=== PATIENT | female | born 1975 | race Caucasian/White ===

== ENCOUNTER → 2016-07-09 | Outpatient (CLI) | payer MEDICAID | LOC: FIMAGING 08:33 | PROVIDERS: ATTEND Midwife | DX: O09.522 Supervision of elderly multigravida, second trimester (principal); Z3A.20 20 weeks gestation of pregnancy ==

== ENCOUNTER → 2016-09-26 | Outpatient (CLI) | payer MEDICAID | LOC: FIMAGING 13:33 | PROVIDERS: ATTEND Midwife | DX: O09.523 Supervision of elderly multigravida, third trimester (principal); Z3A.33 33 weeks gestation of pregnancy ==

== ENCOUNTER 2016-10-05 18:30 | Observation (INO) | payer MEDICAID ==
--- NOTE | 2016-10-05 19:06 | SOAPPROG ---
SOAP Progress Note Assessment/Plan: Assessment: at 33w2d, here for r/o PPROM and PTL No e/o PPROM: neg pool/fern, neg amnisure, normal CAYLA No e/o PTL: cervix closed, fFN neg status reassuring Expect symptoms are MSK in nature Plan: Discharge home with precautions F/u as scheduled next week 10/05/16 20:32 Subjective: Patient is a 41 yo at 33w2d by LMP and 1st trim US, here with multiple complaints: 1) Trickle of milky fluid down her leg after showering yesterday. No leaking since then 2) Intermittent strong pelvic cramps 3) Intermittent back pain 4) Intermittent "cervical pressure" Her has been complicated by AMA, with normal anatomy US and NIPT. Up to date on care. Had a recent US to monitor growth which was appropriate. Prior 18 yrs ago at term, also h/o ectopic. Rh pos. Normal movement. No VB. Not feeling any tightening or contractions, just what she describes as menstrual cramps. Objective: 121/76 92 95% 36.4 Gen: Alert, awake, NAD Resp: unlabored CV: RRR Abd: gravid, soft, nontender Ext: no edema SSE: physiologic leukorrhea of . Cervix long/closed. Neg pool, including with valsalva fFN, amnisure, slide for fern, GBS collected Wet mount: Neg clue cells. Neg yeast. Neg fern Bedside US: Vertex presentation DVP 6.6 cm Post placenta FHR baseline 140, mod gina, + acc 15x15, no decels Contractions: none SVE (after neg amnisure): long/closed ICD10 Worksheet Patient Problems: Problems Problem Status Onset Abdominal pain affecting , antepartum Acute - ICD10 Problem Qualifiers (1) Abdominal pain affecting , antepartum
== END 2016-10-05 20:57 | disposition home or self-care (01) ==
LOC: FLD 18:30
PROVIDERS: ADMIT Obstetrics & Gynecology; ATTEND Obstetrics & Gynecology
DX: O99.89 Other specified diseases and conditions complicating pregnancy, childbirth and the puerperium (principal); R10.2 Pelvic and perineal pain; O09.513 Supervision of elderly primigravida, third trimester; Z3A.33 33 weeks gestation of pregnancy
CPT/HCPCS: 59025; 76815; G0378

== ENCOUNTER → 2016-10-22 | Outpatient (CLI) | payer MEDICAID | LOC: FIMAGING 12:38 | PROVIDERS: ATTEND Midwife | DX: O09.523 Supervision of elderly multigravida, third trimester (principal); Z3A.35 35 weeks gestation of pregnancy ==

== ENCOUNTER 2016-11-15 17:57 | Inpatient (IN) | payer MEDICAID ==
[2016-11-15] MEDS ORDERED: TERBUTALINE SULFATE 1 MG/ML VIAL IV PRN (19:53)
[2016-11-15] MEDS ORDERED: IBUPROFEN 600 MG TAB PO PRN (19:53)
[2016-11-15] MEDS ORDERED: OLIVE OIL 118 ML BTL MISC PRN (19:53)
[2016-11-15] MEDS ORDERED: LR 1,000 ML IV PRN (19:53)
[2016-11-15] MEDS ORDERED: OXYTOCIN/RINGERS LACTATE 1,000 ML IV PRN (19:53)
[2016-11-15] MEDS ORDERED: EPSOM SALT 454 GM TP PRN (19:53)
--- NOTE | 2016-11-15 20:13 | PDGENHP ---
History and Physical History and Physical: Patient is a 41 year old who presents for IOL of labor for PrEclampsia Patient refusing IV at this point Discussed use of yun balloon for IOL and no meds patient agrees. Denies headache no visual changes no epigastric pain. BP 127/79 Lung: CTA Heart:RRR Abd: nontender gravid Cervix: External os 2 cm internal os 1 cm Cephalic by ultrasound O+/Rubella Non Immune/GBS negative Normal PIH labs today Yun balloon placed Reactive NST All questions and concerns answered Discussed possible AROM after balloon out vs pitocin etc.
[2016-11-16] MEDS ORDERED: OLIVE OIL 118 ML BTL ONE (00:50)
[2016-11-16] MEDS ORDERED: LIDOCAINE 1% 300 MG/30 ML SDV ONE (00:50)
[2016-11-16] MEDS ORDERED: AMMONIA AROMATIC 1 EACH AMP IH ONE (00:50)
[2016-11-16] MEDS ORDERED: TERBUTALINE SULFATE 1 MG/ML VIAL ONE (00:50)
[2016-11-16] MEDS ORDERED: OXYTOCIN 10 UNIT/ML VIAL ONE (00:51)
[2016-11-16] MEDS ORDERED: MISOPROSTOL 200 MCG TAB ONE (00:51)
[2016-11-16 06:53] LABS: % IMMATURE GRANULYOCYTES 1.7 % (0.0-1.1); ABSOLUTE IMMATURE GRANULOCYTES 0.23 10^3/uL (0.00-0.10); ADD DIFF? NO; ADD MORPH? NO; ADD SCAN? NO; ATYPICAL LYMPHOCYTE FLAG 0 (0-99); FRAGMENT RBC FLAG 20 (0-99); HEMATOCRIT 34.9 % (38.0-47.0); HEMOGLOBIN 11.4 g/dL (12.6-16.3); LEFT SHIFT FLG 10 (0-99); LIPEMIA HEMOLYSIS FLAG 80 (0-99); MEAN CELL HEMOGLOBIN 27.4 pg (27.9-34.1); MEAN CELL HEMOGLOBIN CONCENTR. 32.7 g/dL (32.4-36.7); MEAN CELL VOLUME 83.9 fL (81.5-99.8); PLATELET CLUMPS FLAG 0 (0-99); PLATELET COUNT 194 10^3/uL (150-400); RED BLOOD CELL COUNT 4.16 10^6/uL (4.18-5.33); RED CELL DISTRIBUTION WIDTH 17.1 % (11.5-15.2)
[2016-11-16 07:01] LABS: ALANINE AMINOTRANSFERASE 21 IU/L (9-52); ASPARTATE AMINOTRANSFERASE 18 IU/L (14-46); CREATININE 0.6 mg/dL (0.6-1.0); GLOMERULAR FILTRATION RATE > 60; URIC ACID 5.1 mg/dL (2.5-6.8)
--- NOTE | 2016-11-16 07:54 | OBPROG ---
OBG Labor Progress Note Assessment/Plan: Assessment: Plan: Subjective: Patient refusing IV and wanting it out. Before able to discuss with patient or plan patient stated she refuesed to talk anymore and is leaving AMA. Attempted to discuss the risk and benefits including risk of severe prE eclampsia with seizure the headaches and visual changes. Return precautions given for decreased movement bleeding contractions etc. Patient refusing to respond verbalizing understanding Objective: 11/16/16 06:35 11/16/16 06:35 Patient ABO/Rh O POSITIVE 11/16/16 06:35 Uric Acid 5.1 mg/dL (2.5-6.8) 11/16/16 06:35 AST 18 IU/L (14-46) 11/16/16 06:35 ALT 21 IU/L (9-52) 11/16/16 06:35 - Physical Exam General Appearance: other (Refusing exam) Oxytocin Orders Assessment - Pre-Induction/Augmentation Assessment Presentation: Vertex Gestational Age: 39 week(s) and 1 day(s) Membrane Status: Intact (Guerrero balloon fell out at 0300 refuse exam) ICD10 Worksheet Patient Problems: Problems Problem Status Onset Abdominal pain affecting , antepartum Acute
== END 2016-11-16 07:50 | disposition left against medical advice (07) | DRG 781 ==
LOC: FLD 17:57
PROVIDERS: ADMIT Midwife; ATTEND Obstetrics & Gynecology
PROC: 0U7C7DZ Dilation of Cervix with Intraluminal Device, Via Natural or Artificial Opening (ICD-10-PCS; principal; 2016-11-15)
DX: O14.93 Unspecified pre-eclampsia, third trimester (principal); Z3A.39 39 weeks gestation of pregnancy
CPT/HCPCS: J3105

== ENCOUNTER 2016-11-16 23:34 | Observation (INO) | payer MEDICAID ==
[2016-11-17 00:09] LABS: % IMMATURE GRANULYOCYTES 2.4 % (0.0-1.1); ADD DIFF? NO; ADD MORPH? NO; ADD SCAN? NO; ATYPICAL LYMPHOCYTE FLAG 0 (0-99); FRAGMENT RBC FLAG 20 (0-99); HEMATOCRIT 34.9 % (38.0-47.0); HEMOGLOBIN 11.1 g/dL (12.6-16.3); LEFT SHIFT FLG 20 (0-99); LIPEMIA HEMOLYSIS FLAG 80 (0-99); MEAN CELL HEMOGLOBIN 26.6 pg (27.9-34.1); MEAN CELL HEMOGLOBIN CONCENTR. 31.8 g/dL (32.4-36.7); MEAN CELL VOLUME 83.7 fL (81.5-99.8); MEAN PLATELET VOLUME 12.3 fL (8.7-11.7); PLATELET CLUMPS FLAG 0 (0-99); PLATELET COUNT 191 10^3/uL (150-400); RED BLOOD CELL COUNT 4.17 10^6/uL (4.18-5.33)
[2016-11-17 00:31] LABS: ALANINE AMINOTRANSFERASE 20 IU/L (9-52); ASPARTATE AMINOTRANSFERASE 16 IU/L (14-46); BILIRUBIN,TOTAL 0.4 mg/dL (0.1-1.4); BILIRUBIN-CONJUGATED 0.3 mg/dL (0.0-0.5); BILIRUBIN-UNCONJUGATED 0.1 mg/dL (0.0-1.1); CREATININE 0.6 mg/dL (0.6-1.0); GLOMERULAR FILTRATION RATE > 60; LACTATE DEHYDROGENASE 390 IU/L (313-618); URIC ACID 4.6 mg/dL (2.5-6.8)
--- NOTE | 2016-11-17 00:49 | SOAPPROG ---
SOAP Progress Note Assessment/Plan: Assessment: IUP at 39 weeks Normal BP Normal labs Does not want IOL Plan: 24h urine protein Discussion with myself and Anesthesia Patient wants natural labor and not induction and no IV Patient had attempted IOL and signed out AMA after removing her IV 11/17/16 00:45 Subjective: Patient here to discuss options at this point no PIH symptoms and not wanting IOL. Patient refusing IV with medical induction and not wanting pitocin. Wants to go as natural as possible Reactie NST Objective: Laboratory Results 11/17/16 00:01 11/17/16 00:01 BP 127/80 WBC 12.75 10^3/uL (3.80-9.50) H 11/17/16 00:01 RBC 4.17 10^6/uL (4.18-5.33) L 11/17/16 00:01 Hgb 11.1 g/dL (12.6-16.3) L 11/17/16 00:01 Hct 34.9 % (38.0-47.0) L 11/17/16 00:01 MCV 83.7 fL (81.5-99.8) 11/17/16 00:01 MCH 26.6 pg (27.9-34.1) L 11/17/16 00:01 MCHC 31.8 g/dL (32.4-36.7) L 11/17/16 00:01 RDW 17.0 % (11.5-15.2) H 11/17/16 00:01 Plt Count 191 10^3/uL (150-400) 11/17/16 00:01 MPV 12.3 fL (8.7-11.7) H 11/17/16 00:01 Neut % (Auto) 76.9 % (39.3-74.2) H 11/17/16 00:01 Lymph % (Auto) 12.8 % (15.0-45.0) L 11/17/16 00:01 Carver % (Auto) 7.0 % (4.5-13.0) 11/17/16 00:01 Eos % (Auto) 0.7 % (0.6-7.6) 11/17/16 00:01 Baso % (Auto) 0.2 % (0.3-1.7) L 11/17/16 00:01 Nucleat RBC Rel Count 0.0 % (0.0-0.2) 11/17/16 00:01 Absolute Neuts (auto) 9.81 10^3/uL (1.70-6.50) H 11/17/16 00:01 Absolute Lymphs (auto) 1.63 10^3/uL (1.00-3.00) 11/17/16 00:01 Absolute Monos (auto) 0.89 10^3/uL (0.30-0.80) H 11/17/16 00:01 Absolute Eos (auto) 0.09 10^3/uL (0.03-0.40) 11/17/16 00:01 Absolute Basos (auto) 0.03 10^3/uL (0.02-0.10) 11/17/16 00:01 Absolute Nucleated RBC 0.00 10^3/uL (0-0.01) 11/17/16 00:01 Immature Gran % 2.4 % (0.0-1.1) H 11/17/16 00:01 Immature Gran # 0.30 10^3/uL (0.00-0.10) H 11/17/16 00:01 BUN 13 mg/dL (7-23) 11/17/16 00:01 Creatinine 0.6 mg/dL (0.6-1.0) 11/17/16 00:01 Estimated GFR > 60 11/17/16 00:01 Uric Acid 4.6 mg/dL (2.5-6.8) 11/17/16 00:01 Total Bilirubin 0.4 mg/dL (0.1-1.4) 11/17/16 00:01 Conjugated Bilirubin 0.3 mg/dL (0.0-0.5) 11/17/16 00:01 Unconjugated Bilirubin 0.1 mg/dL (0.0-1.1) 11/17/16 00:01 AST 16 IU/L (14-46) 11/17/16 00:01 ALT 20 IU/L (9-52) 11/17/16 00:01 Lactate Dehydrogenase 390 IU/L (313-618) 11/17/16 00:01 - Time Spent With Patient Time Spent With Patient: 30 minutes spent ICD10 Worksheet Patient Problems: Problems Problem Status Onset PIH evaluation Acute Abdominal pain affecting , antepartum Acute
== END 2016-11-17 01:10 | disposition left against medical advice (07) ==
LOC: FLD 23:34
PROVIDERS: ADMIT Obstetrics & Gynecology; ATTEND Obstetrics & Gynecology
DX: Z03.79 Encounter for other suspected maternal and fetal conditions ruled out (principal); O09.513 Supervision of elderly primigravida, third trimester; Z3A.39 39 weeks gestation of pregnancy

== ENCOUNTER → 2016-11-19 | Outpatient (CLI) | payer MEDICAID | LOC: FIMAGING 13:09 | PROVIDERS: ATTEND Midwife | DX: O09.523 Supervision of elderly multigravida, third trimester (principal); O13.3 Gestational [pregnancy-induced] hypertension without significant proteinuria, third trimester; Z3A.39 39 weeks gestation of pregnancy ==